=== PATIENT | male | born 1980 | race Caucasian/White ===

== ENCOUNTER 2022-06-13 12:27 | Emergency (ER) | payer SELFPAY ==
[2022-06-13] MEDS ORDERED: Ibuprofen 600 MG Tab PO ONE (12:56)
== END 2022-06-13 13:26 | disposition home or self-care (01) ==
LOC: MW.ED 12:27
DX: S03.2XXA Dislocation of tooth, initial encounter (principal); B34.9 Viral infection, unspecified; Z72.0 Tobacco use
CPT/HCPCS: 99283; A9270